=== PATIENT | female | born 1945 | race Hispanic/Latino ===

== ENCOUNTER 2018-12-19 12:58 | Emergency (ER) | payer MEDICARE, BC ==
[2018-12-19 13:13] VITALS: RESP 18
[2018-12-19 14:07] LABS: BASO % 0.3 % (0.0-2.0); EOS % 0.1 % (0.0-4.0); HEMOGLOBIN 12.8 g/dL (11.0-16.0); LYMPH # 1.2 K/uL (1.0-4.3); LYMPH % 12.9 % (20.0-40.0); MEAN CELL VOLUME 94.4 fL (81.0-99.0); MEAN CORPUSCULAR HEMOGLOBIN 31.8 pg (27.0-31.0); MEAN CORPUSCULAR HGB CONC 33.7 g/dL (33.0-37.0); MEAN PLATELET VOLUME 8.3 fL (7.2-11.7); MONO % 11.2 % (0.0-10.0); NEUT # 6.9 K/uL (1.8-7.0); NEUT % 75.5 % (50.0-75.0); RBC 4.01 Mil/uL (3.80-5.20); RED CELL DISTRIBUTION WIDTH 14.7 % (11.5-14.5); WHITE BLOOD COUNT 9.1 K/uL (4.8-10.8)
[2018-12-19 14:17] LABS: ALB/GLOB RATIO 1.3 (1.0-2.1); ALBUMIN 4.3 g/dL (3.5-5.0); ALT/SGPT 20 U/L (9-52); AST/SGOT 15 U/L (14-36); BLOOD UREA NITROGEN 14 mg/dL (7-17); CALCIUM 9.9 mg/dl (8.6-10.4); GFR NON-AFRICAN AMERICAN 54
--- NOTE | 2018-12-19 15:32 | RAD ---
Date of service: 12/19/2018 PROCEDURE: CHEST RADIOGRAPH, 1 VIEW HISTORY: cough r/o infiltrate COMPARISON: None available. FINDINGS: LUNGS: Ill-defined opacity at right base. Suspicious for pneumonia. PLEURA: Small right pleural effusion. No left pleural effusion. No pneumothorax. CARDIOVASCULAR: Normal heart size. Large retrocardiac mass containing some lucency, consistent with large hiatal hernia. Confirm with lateral chest radiograph. No congestive change. There is no atherosclerotic calcification the thoracic aorta. OSSEOUS STRUCTURES: No significant abnormalities. VISUALIZED UPPER ABDOMEN: Normal. OTHER FINDINGS: None. IMPRESSION: Right basilar ill-defined opacity suspicious for pneumonia. Small right pleural effusion. Suspect large hiatal hernia. Confirm with lateral chest radiograph.
[2018-12-19 15:40] VITALS: BP 123/78; PULSE 98; TEMP 98; O2SAT 100
--- NOTE | 2018-12-19 16:08 | C.PDOC ---
History Of Present Illness 73 y.o. Female was sent by Urgent center for CXR findings. The pt reports having a nonproductive cough x4 days associated with subjective fever yesterday. No fever today. Pr notes cough is exacerbated when taking deep breaths. Pt denies taking antipyretics. Denies dyspnea on exertion, CP, and any other associated symptoms Time Seen by Provider: 12/19/18 13:16 Chief Complaint (Nursing): Cough, Cold, Congestion History Per: Patient History/Exam Limitations: no limitations Onset/Duration Of Symptoms: Days (x4 days ) Current Symptoms Are (Timing): Still Present Recent travel outside of the [place]: No Past Medical History Reviewed: Historical Data, Nursing Documentation, Vital Signs Vital Signs: Last Vital Signs Temp 98 F 12/19/18 15:39 Pulse 98 H 12/19/18 15:39 Resp 18 12/19/18 15:39 BP 123/78 12/19/18 15:39 Pulse Ox 100 12/19/18 15:39 - [facility] Procedures CYSTOGRAM NEC (01/25/05) RETROGRADE PYELOGRAM (01/25/05) URETERAL CATHETERIZATION (01/25/05) Family History: States: Unknown Family Hx - Social History Hx Alcohol Use: No Hx Substance Use: No - Immunization History Hx Tetanus Toxoid Vaccination: No Hx Influenza Vaccination: No Hx Pneumococcal Vaccination: No Review Of Systems Except As Marked, All Systems Reviewed And Found Negative. Constitutional: Positive for: Fever (subjective. ) Cardiovascular: Negative for: Chest Pain Respiratory: Positive for: Cough (nonproductive. ). Negative for: Other (dyspnea. ) Physical Exam - Physical Exam Appears: Non-toxic, No Acute Distress Skin: Warm, Dry Head: Atraumatic, Normacephalic Eye(s): bilateral: Normal Inspection Oral Mucosa: Moist Neck: Normal ROM, Supple Chest: Symmetrical, No Deformity Cardiovascular: Rhythm Regular, No Murmur Respiratory: Normal Breath Sounds, No Rales, No Rhonchi Gastrointestinal/Abdominal: Normal Exam, Soft, No Tenderness Extremity: Bilateral: Atraumatic, Normal Color And Temperature, Normal ROM Neurological/Psych: Oriented x3, Normal Speech, Normal Cognition ED Course And Treatment - Laboratory Results Result Diagrams: 12/19/18 14:00 12/19/18 14:00 Lab Results: Total Bilirubin 0.9 mg/dL (0.2-1.3) 12/19/18 14:00 AST 15 U/L (14-36) 12/19/18 14:00 ALT 20 U/L (9-52) 12/19/18 14:00 Alkaline Phosphatase 88 U/L (38-126) 12/19/18 14:00 Total Protein 7.6 g/dL (6.3-8.3) 12/19/18 14:00 Albumin 4.3 g/dL (3.5-5.0) 12/19/18 14:00 Globulin 3.3 gm/dL (2.2-3.9) 12/19/18 14:00 Albumin/Globulin Ratio 1.3 (1.0-2.1) 12/19/18 14:00 O2 Sat by Pulse Oximetry: 100 (RA) Pulse Ox Interpretation: Normal - Other Rad CXR X-Ray: Viewed By Me, Read By Radiologist Interpretation: FINDINGS: LUNGS: Ill-defined opacity at right base. Suspicious for pneumonia. PLEURA: Small right pleural effusion. No left pleural effusion. No pneumothorax. CARDIOVASCULAR: Normal heart size. Large retrocardiac mass containing some lucency, consistent with large hiatal hernia. Confirm with lateral chest radiograph. No congestive change. There is no atherosclerotic calcification the thoracic aorta. OSSEOUS STRUCTURES: No significant abnormalities. VISUALIZED UPPER ABDOMEN: Normal. OTHER FINDINGS: None. IMPRESSION: Right basilar ill-defined opacity suspicious for pneumonia. Small right pleural effusion. Suspect large hiatal hernia. Confirm with lateral chest radiograph. Medical Decision Making Medical Decision Making: Initial plan: -CXR -Blood sent. -Influenza Swab Progress/Update: CURB-65 score is 1 Pt prescribed Motrin and Levaquin. Will treat as out-pt. Pt agreed to abide to follow up with PMD with 48hrs. Disposition - Disposition Referrals: Danny Reddy DO [[facility]] - Disposition: HOME/ ROUTINE Disposition Time: 15:10 Condition: GOOD Additional Instructions: JAYLA FELDER, thank you for letting us take care of you today. The emergency medical care you received today was directed at your acute symptoms. If you were prescribed any medication, please fill it and take as directed. It may take several days for your symptoms to resolve. Return to the Emergency Department if your symptoms worsen, do not improve, or if you have any other problems. Please contact your doctor or call one of the physicians/clinics you have been referred to that are listed on the Patient Visit Information form that is included in your discharge packet. Bring any paperwork you were given at discharge with you along with any medications you are taking to your follow up visit. Our treatment cannot replace ongoing medical care by a primary care provider outside of the emergency department. Thank you for allowing the [facility] team to be part of your care today. Follow up with your primary care doctor in 2-3 days for re-evaluation and further management. Prescriptions: Ibuprofen [Motrin] 600 mg PO Q6 PRN #20 tab PRN Reason: Pain, Moderate (4-7) levoFLOXacin [Levaquin] 750 mg PO DAILY #5 tab Instructions: Pneumonia in Adults Forms: [employer] (Irish) - Clinical Impression Clinical Impression: Pneumonia - Scribe Statement The provider has reviewed the documentation as recorded by the Scribe (Jacqueline Sanches) Provider Attestation: All medical record entries made by the Scribe were at my direction and personally dictated by me. I have reviewed the chart and agree that the record accurately reflects my personal performance of the history, physical exam, medical decision making, and the department course for this patient. I have also personally directed, reviewed, and agree with the discharge instructions and disposition.
== END 2018-12-19 15:41 | disposition home or self-care (01) ==
LOC: C.ER 12:58
DX: J18.9 Pneumonia, unspecified organism (principal)

== ENCOUNTER → 2018-12-29 | Outpatient (CLI) | payer MEDICARE, BC | LOC: C.RADIC 09:19 | DX: J18.1 Lobar pneumonia, unspecified organism (principal) ==